=== PATIENT | female | born 1955 | race Caucasian/White ===

== ENCOUNTER 2022-11-20 13:00 | Outpatient (CLI) | payer MEDICARE | END 2022-11-20 13:01 | disposition home or self-care (01) | LOC: CSHMAMMO 13:00 | PROVIDERS: ATTEND Internal Medicine | DX: Z12.31 Encounter for screening mammogram for malignant neoplasm of breast (principal); Z13.820 Encounter for screening for osteoporosis; Z85.89 Personal history of malignant neoplasm of other organs and systems; M81.0 Age-related osteoporosis without current pathological fracture; Z78.0 Asymptomatic menopausal state | CPT/HCPCS: 77063; 77067; 77080 ==